=== PATIENT | male | born 1940 | race Caucasian/White ===

== ENCOUNTER 2023-06-02 17:44 | Emergency (ER) | payer MEDICARE, BC ==
[~2023-06-02] VITALS: Ht 160 cm; Wt 57.2 kg
[2023-06-02] MEDS: ACETAMINOPHEN 500 MG TAB PO ONE (21:34)
[2023-06-02 22:20] VITALS: BP 163/54; PULSE 66; RESP 20; TEMP 98.6; O2SAT 93
== END 2023-06-02 22:23 | disposition home or self-care (01) ==
LOC: EDBD 17:44 → ER 17:44
DX: R04.0 Epistaxis (principal); I10 Essential (primary) hypertension
CPT/HCPCS: 30901

== ENCOUNTER 2023-06-03 10:13 | Emergency (ER) | payer MEDICARE, BC ==
[~2023-06-03] VITALS: Ht 162.6 cm; Wt 60.0 kg
[2023-06-03 10:36] VITALS: BP 156/60; PULSE 65; RESP 18; TEMP 97.7; O2SAT 94
[2023-06-03] MEDS: OXYMETAZOLINE HCL 0.05 % NASAL SPRAY 15ML EACHNOSTRI ONE (10:55)
== END 2023-06-03 12:09 | disposition home or self-care (01) ==
LOC: ER 10:13
DX: R04.0 Epistaxis (principal); I10 Essential (primary) hypertension
CPT/HCPCS: 30901